=== PATIENT | female | born 1990 | race Caucasian/White ===

== ENCOUNTER 2016-12-07 15:37 | Emergency (ER) | payer SELFPAY ==
--- NOTE | 2016-12-07 16:37 | ER Document Report ---
ED Medical Screen (RME) - General Stated Complaint: STOMACH PAIN Notes: 25 yo female c/o lower abdominal pain x 2 days, intermittant pain. denies any dysuria or urinary symptoms. no vaginal symptoms. noted blood with bowel movement, dark brown/red. denies constipation or hemorrhoids. no previous rectal bleeding. no n/v. abd is soft. mild LLQ tenderness. no guarding TRAVEL OUTSIDE OF THE [place] IN LAST 30 DAYS: No - Related Data Allergies/Adverse Reactions: No Known Allergies Allergy (Verified 12/07/16 16:33) Past Medical History - Social History Family history: Reviewed & Not Pertinent Endocrine Medical History: Reports: Hx Hypothyroidism Renal/ Medical History: Denies: Hx Ovarian Cysts Psychiatric Medical History: Reports: Hx Anxiety - Immunizations Hx Diphtheria, Pertussis, Tetanus Vaccination: Yes Physical Exam - Vital signs Vitals: Temp Pulse Resp BP Pulse Ox 98.5 F 115 H 16 127/74 H 100 12/07/16 16:28 12/07/16 16:28 12/07/16 16:28 12/07/16 16:28 12/07/16 16:28 Course - Vital Signs Vital signs: Temp Pulse Resp BP Pulse Ox 98.5 F 115 H 16 127/74 H 100 12/07/16 16:28 12/07/16 16:28 12/07/16 16:28 12/07/16 16:28 12/07/16 16:28
[2016-12-07 17:40] LABS: ABSOLUTE LYMPHOCYTES (AUTO) 1.9 10^3/uL (0.5-4.7); ABSOLUTE MONOCYTES (AUTO) 0.7 10^3/uL (0.1-1.4); ABSOLUTE NEUT (AUTO) 6.8 10^3/uL (1.7-8.2); BASOPHILS % (AUTO) 0.2 % (0-2); EOSINOPHILS % (AUTO) 0.2 % (0-6); HEMATOCRIT 41.3 % (36.0-47.0); HEMOGLOBIN 13.9 g/dL (12.0-15.5); HGB HCT DIFFERENCE 0.4; LYMPHOCYTES % (AUTO) 20.2 % (13-45); MEAN CORPUSCULAR HEMOGLOBIN 28.6 pg (27.0-33.4); MEAN CORPUSCULAR HGB CONC 33.7 g/dL (32.0-36.0); MEAN CORPUSCULAR VOLUME 85 fl (80-97); RED BLOOD COUNT 4.87 10^6/uL (3.72-5.28); RED CELL DISTRIBUTION WIDTH 13.4 % (11.5-14.0); SEGMENTED NEUTROPHILS % (AUTO) 72.4 % (42-78); WHITE BLOOD COUNT 9.4 10^3/uL (4.0-10.5)
[2016-12-07 17:55] LABS: ALANINE AMINOTRANSFERASE 25 U/L (9-52); ALBUMIN 4.4 g/dL (3.5-5.0); ALKALINE PHOSPHATASE 79 U/L (38-126); ANION GAP 15 (5-19); APPEARANCE,URINE CLEAR; ASPARTATE AMINO TRANSFERASE 19 U/L (14-36); BILIRUBIN,TOTAL 0.4 mg/dL (0.2-1.3); BILIRUBIN,URINE NEGATIVE (NEGATIVE); BLOOD UREA NITROGEN 12 mg/dL (7-20); CALCIUM 10.3 mg/dL (8.4-10.2); CARBON DIOXIDE 23 mmol/L (22-30); CHLORIDE 102 mmol/L (98-107); CREATININE RESULT 0.52 mg/dL (0.52-1.25); GLUCOSE 114 mg/dL (75-110); GLUCOSE, URINE NEGATIVE (NEGATIVE); KETONES,URINE NEGATIVE (NEGATIVE); LEUKOCYTE ESTERASE,URINE SMALL (NEGATIVE); NITRITE,URINE NEGATIVE (NEGATIVE); POTASSIUM 4.1 mmol/L (3.6-5.0); PROTEIN,URINE NEGATIVE (NEGATIVE); SODIUM 140.2 mmol/L (137-145); TOTAL PROTEIN 8.1 g/dL (6.3-8.2); URINE SPECIFIC GRAVITY 1.016; UROBILINOGEN,URINE NEGATIVE mg/dL (<2.0)
--- NOTE | 2016-12-07 18:29 | ER Document Report ---
ED General - General Chief Complaint: Abdominal Pain Stated Complaint: STOMACH PAIN Mode of Arrival: Ambulatory Information source: Patient Notes: Patient presents to the emergency department with complaints of abdominal pain 2 days. She denies fever vomiting but reports diarrhea twice today. She reports last time she had diarrhea she noted blood in it. She denies history of rectal bleed. She denies family history of colon cancers. She denies rectal intercourse. TRAVEL OUTSIDE OF THE [place] IN LAST 30 DAYS: No - HPI Onset: This afternoon Onset/Duration: Sudden Severity: None Associated symptoms: None Exacerbated by: Denies Relieved by: Denies Similar symptoms previously: No Recently seen / treated by doctor: No - Related Data Allergies/Adverse Reactions: No Known Allergies Allergy (Verified 12/07/16 16:33) Past Medical History - General Information source: Patient Last Menstrual Period: 11/10/2016 - Social History Smoking Status: Never Smoker Cigarette use (# per day): No Chew tobacco use (# tins/day): No Frequency of alcohol use: None Drug Abuse: None Occupation: student Family History: None - Denies Patient has suicidal ideation: No Patient has homicidal ideation: No Endocrine Medical History: Reports: Hx Hypothyroidism Renal/ Medical History: Denies: Hx Ovarian Cysts, Hx Peritoneal Dialysis Psychiatric Medical History: Reports: Hx Anxiety - Immunizations Hx Diphtheria, Pertussis, Tetanus Vaccination: Yes Review of Systems - Review of Systems Notes: Review HPI for review of systems., All other systems negative Physical Exam - Vital signs Vitals: Temp Pulse Resp BP Pulse Ox 98.5 F 115 H 16 127/74 H 100 12/07/16 16:28 12/07/16 16:28 12/07/16 16:28 12/07/16 16:28 12/07/16 16:28 - Notes Notes: PHYSICAL EXAMINATION: GENERAL: Well-appearing and in no acute distress nontoxic looking HEAD: Atraumatic, normocephalic. EYES: Pupils equal round and reactive to light, extraocular movements intact, sclera anicteric, conjunctiva are normal. ENT: nares patent, oropharynx clear without exudates. Moist mucous membranes. NECK: Normal range of motion, supple without lymphadenopathy LUNGS: CTAB and equal. No wheezes rales or rhonchi. HEART: Regular rate and rhythm without murmurs ABDOMEN: Soft, no tenderness. No guarding, no rebound BACK: Denies pain EXTREMITIES: Normal range of motion, no pitting edema. No cyanosis. NEUROLOGICAL: Cranial nerves grossly intact. Normal sensory/motor exams. PSYCH: Normal mood, normal affect. SKIN: Warm, Dry, normal turgor, no rashes or lesions noted - Rectal Tenderness: No Stool: Heme negative Course - Re-evaluation Re-evalutation: 12/07/16 Patient instructed on all labs. Patient instructed on negative occult stool. Patient was instructed on importance of follow-up with the GI provider for further evaluation she verbalized understanding. I have consulted the attending provider per [facility] guidelines - Vital Signs Vital signs: Temp Pulse Resp BP Pulse Ox 98.7 F 98 16 107/67 100 12/07/16 19:50 12/07/16 19:50 12/07/16 19:50 12/07/16 19:50 12/07/16 19:50 - Laboratory Result Diagrams: 12/07/16 17:15 12/07/16 17:15 Laboratory results interpreted by me: 12/07/16 12/07/16 17:15 17:15 Glucose 114 H Calcium 10.3 H Urine Blood SMALL H Ur Leukocyte Esterase SMALL H Discharge - Discharge Clinical Impression: Rectal bleed Abdominal pain Qualifiers: Abdominal location: lower abdomen, unspecified Qualified Code(s): R10.30 - Lower abdominal pain, unspecified Condition: Stable Disposition: HOME, SELF-CARE Instructions: Abdominal Pain ([facility]), Rectal Bleeding, Unclear Cause ([facility]), Gastroenterology Additional Instructions: *You have been evaluated for abdominal pain rectal bleed *Monitor your stools *Follow up with a emu farmer for evaluation and colonoscopy as indicated *Live up with primary care within the next week *Return to ED for worsening condition, changes, needs *Return to ED if not better in 24 hours Forms: Return to School Referrals: PETEY CHU [Primary Care Provider] - Follow up in 3-5 days
[2016-12-07 19:54] VITALS: BP 107/67
== END 2016-12-07 19:54 | disposition home or self-care (01) ==
LOC: ER 15:37
DX: R10.30 Lower abdominal pain, unspecified (principal); K62.5 Hemorrhage of anus and rectum; R19.7 Diarrhea, unspecified
CPT/HCPCS: 36415; 80053; 81001; 82272; 84703; 85025; 99283

== ENCOUNTER 2018-05-01 11:16 | Outpatient (CLI) | payer BC ==
--- NOTE | 2018-05-01 12:38 | Non Stress Test Report ---
Non Stress Test Datetime Report Generated by CPN: 05/01/2018 12:38 DEMOGRAPHIC EGA NST: 34.2 INDICATION Indication for Study: Ordered by Provider Indication for Study (NST) Other: repeat from office Polyhydramnios MONITORING Monitor Explained: Monitor Explained; Test Explained; Patient Verbalized Understanding Monitor Explained Other: see flowsheet for vital signs Time on Monitor: 05/01/2018 11:30 Time off Monitor: 05/01/2018 12:33 NST Duration: 63 NST INTERVENTIONS NST Interventions: PO Hydration; Reposition Patient Physician Notified NST: Dr. Naqvi BABY A: [id number] BABY A Movement : Present Contraction Frequency : rare FHR Baseline : 155 Accelerations : 15X15 Decelerations : None Variability : Moderate 6-25bpm NST Review: Meets Criteria for Reactive NST NST Review and Verified By : ELODIA Goins Results: Reactive NST REPORT Report Trigger: Send Report
== END 2018-05-01 12:36 | disposition home or self-care (01) ==
LOC: LC 11:16
PROVIDERS: ATTEND Obstetrics & Gynecology
PROC: 4A1HXCZ Monitoring of Products of Conception, Cardiac Rate, External Approach (ICD-10-PCS; principal; 2018-05-01)
DX: O40.3XX0 Polyhydramnios, third trimester, not applicable or unspecified (principal); Z3A.34 34 weeks gestation of pregnancy
CPT/HCPCS: 59025

== ENCOUNTER 2018-05-04 09:50 | Outpatient (CLI) | payer BC ==
--- NOTE | 2018-05-04 10:42 | Non Stress Test Report ---
Non Stress Test Datetime Report Generated by CPN: 05/04/2018 10:41 DEMOGRAPHIC EGA NST: 34.5 INDICATION Indication for Study: Ordered by Provider MONITORING Monitor Explained: Monitor Explained; Test Explained; Patient Verbalized Understanding Time on Monitor: 05/04/2018 10:12 Time off Monitor: 05/04/2018 10:36 NST Duration: 24 NST INTERVENTIONS NST Interventions: PO Hydration Physician Notified NST: Dr Callejas BABY A: [id number] BABY A Movement : Present Contraction Frequency : irregular FHR Baseline : 155 Accelerations : 15X15 Decelerations : None Variability : Moderate 6-25bpm NST Review: Meets Criteria for Reactive NST NST Review and Verified By : Alyse Camp RNC NST Results: Reactive NST REPORT Report Trigger: Send Report
== END 2018-05-04 10:46 | disposition home or self-care (01) ==
LOC: LC 09:50
PROVIDERS: ATTEND Student in an Organized Health Care Education/Training Program
PROC: 4A1HXCZ Monitoring of Products of Conception, Cardiac Rate, External Approach (ICD-10-PCS; principal; 2018-05-04)
DX: O47.03 False labor before 37 completed weeks of gestation, third trimester (principal); Z3A.34 34 weeks gestation of pregnancy
CPT/HCPCS: 59025; 94760

== ENCOUNTER 2018-05-28 02:47 | Inpatient (IN) | payer BC, MEDICAID ==
[2018-05-28 03:17] LABS: APPEARANCE,URINE CLOUDY; BILIRUBIN,URINE NEGATIVE (NEGATIVE); COLOR,URINE YELLOW; GLUCOSE, URINE NEGATIVE (NEGATIVE); KETONES,URINE NEGATIVE (NEGATIVE); LEUKOCYTE ESTERASE,URINE MODERATE (NEGATIVE); NITRITE,URINE NEGATIVE (NEGATIVE); PROTEIN,URINE NEGATIVE (NEGATIVE); URINE SPECIFIC GRAVITY 1.015; UROBILINOGEN,URINE NEGATIVE mg/dL (<2.0)
[2018-05-28 03:35] LABS: URINE AMPHETAMINES SCREEN NEGATIVE; URINE BARBITURATES SCREEN NEGATIVE; URINE BENZODIAZEPINES SCREEN NEGATIVE; URINE COCAINE SCREEN NEGATIVE; URINE MARIJUANA (THC) SCREEN NEGATIVE; URINE METHADONE SCREEN NEGATIVE; URINE PHENCYCLIDINE SCREEN NEGATIVE
[2018-05-28] MEDS: RINGERS SOLUTION,LACTATED 1,000 ML IV PRN ×3 (03:40→12:01)
[2018-05-28 03:46] LABS: ABSOLUTE BASOPHILS # (AUTO) 0.1 10^3/uL (0.0-0.2); ABSOLUTE EOSINOPHILS # (AUTO) 0.2 10^3/uL (0.0-0.6); ABSOLUTE LYMPHOCYTES (AUTO) 2.8 10^3/uL (0.5-4.7); ABSOLUTE MONOCYTES (AUTO) 1.1 10^3/uL (0.1-1.4); ABSOLUTE NEUT (AUTO) 7.1 10^3/uL (1.7-8.2); BASOPHILS % (AUTO) 0.5 % (0-2); EOSINOPHILS % (AUTO) 1.7 % (0-6); HEMATOCRIT 32.7 % (36.0-47.0); HEMOGLOBIN 10.9 g/dL (12.0-15.5); LYMPHOCYTES % (AUTO) 25.3 % (13-45); MEAN CORPUSCULAR HEMOGLOBIN 26.5 pg (27.0-33.4); MEAN CORPUSCULAR HGB CONC 33.4 g/dL (32.0-36.0); MEAN CORPUSCULAR VOLUME 79 fl (80-97); MONOCYTES % (AUTO) 9.6 % (3-13); RED BLOOD COUNT 4.13 10^6/uL (3.72-5.28); RED CELL DISTRIBUTION WIDTH 15.7 % (11.5-14.0); SEGMENTED NEUTROPHILS % (AUTO) 62.9 % (42-78); TOTAL CELLS COUNTED % (AUTO) 100 %; WHITE BLOOD COUNT 11.2 10^3/uL (4.0-10.5)
[2018-05-28] MEDS ORDERED: MISOPROSTOL 0.2 MG TABLET ONE (03:54)
[2018-05-28] MEDS ORDERED: OXYTOCIN/NORMAL SALINE 20 UNIT/1,000 ML RTUINJ ONE (03:54)
[2018-05-28] MEDS ORDERED: LIDOCAINE 1% INJ-PF (10 MG/ML) 30 ML SDV ONE (03:54)
[2018-05-28 04:14] LABS: PLATELET COUNT 266 10^3/uL (150-450)
[2018-05-28] MEDS ORDERED: OXYTOCIN/NORMAL SALINE 20 UNIT/1,000 ML RTUINJ IV PRN ×2 (06:52→10:33)
[2018-05-28] MEDS ORDERED: EPHEDRINE SULFATE INJ 50 MG/1 ML AMPULE ONE (07:08)
[2018-05-28] MEDS ORDERED: FENTANYL/BUPIVACAINE/NS/PF 300 MCG/150 ML RTUINJ EPI ONE (07:09)
[2018-05-28] MEDS ORDERED: BUPIVACAINE HCL 0.25 % INJ/PF (2.5 MG/1 ML) 30 ML VIAL ONE (07:09)
--- NOTE | 2018-05-28 07:21 | Admission Physical ---
Datetime Report Generated by CPN: 05/28/2018 07:21 CURRENT ADMISSION Chief Complaint: Uterine Contractions; Suspected Ruptured Membranes Indication for Induction: Not Applicable Admit Impression : Term, Intrauterine ; Active Labor; Ruptured Membranes Admit Plan: Admit to Unit; Initiate Labor Protocol ALLERGIES Medication Allergies: No Medication Allergies: No Known Allergies (12/07/2016) OBSTETRICAL HISTORY EDC: 06/10/2018 00:00 : 3 Para: 2 Term: 2 : 0 SAB: 0 IAB: 0 Livin Cesareans: 0 VBACs: 0 Multiple Births: 0 Gestational Diabetes: No Rh Sensitization: No Incompetent Cervix: No JOSE: No Infertility: No ART Treatment: No Uterine Anomaly: No IUGR: No Hx Previous C/S: No Macrosomia: No Hx Loss/Stillborn: No PIH: No Hx : No Placenta Previa/Abruption: No Depression/PP Depression: No PTL/PROM: No Post Hemorrhage: No Current Procedures: Ultrasound; NST Obstetrical History Comments: 06/2013 male 39.6 wks 8lb 0 oz 02/2015 male 39.6 wks 8lb 6 oz SEE RECORDS Alcohol: No Marijuana : No Cocaine: No Other Illicit Drugs: No Cigarettes: Never Smoker. 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 Surgery: No Heart Disease: No Hosp/Surgery: No Autoimmune Disorder: No Anesthetic Complications: No Kidney Disease: No Abnormal Pap Smear: No Neuro/Epilepsy: No Psychiatric Disorders: No Other Medical Diseases: No Hepatitis/Liver Disease: No Significant Family History: No Varicosities/Phlebitis: No Trauma/Violence : No Thyroid Dysfunction: No Medical History Comments: anxiety 2 years ago PHYSICAL EXAM General: Normal HEENT: Normal Neurologic: Normal Thyroid: Normal Heart: Normal Lungs: Normal Breast: Deferred Back: Normal Abdomen: Normal Genitourinary Exam: Normal Extremities: Normal DTRs: Normal Pelvic Type: Adequate Vital Signs: Reviewed VAGINAL EXAM Dilatation: 4 Effacement: 75 Station: -2 MEMBRANES Pooling: Negative Membranes: Ruptured FETUS A EGA: 38.1 Monitoring: External US FHR- Baseline: 140 Variability: Moderate 6-25bpm Accelerations: 15X15 Decelerations: None FHR Category: Category I Presentation: Vertex Admit Comment: efw 8-9 lbs PLANS FOR LABOR AND DELIVERY Pain Management: Epidural Feeding Preference: Breast INFORMED CONSENT Signature: with User ID: [email or web address]
[2018-05-28] MEDS ORDERED: FENTANYL CITRATE INJ/PF 100 MCG/2 ML AMPUL ONE (07:30)
[2018-05-28] MEDS ORDERED: PROMETHAZINE HCL 25 MG SUPP.RECT PR PRN (10:33)
[2018-05-28] MEDS ORDERED: PROMETHAZINE HCL 25 MG TABLET PO PRN (10:33)
[2018-05-28] MEDS ORDERED: ACETAMINOPHEN WITH CODEINE #3 TABLET PO PRN ×2 (10:33)
[2018-05-28] MEDS ORDERED: PSEUDOEPHEDRINE HCL 30 MG TABLET PO PRN (10:33)
[2018-05-28] MEDS ORDERED: PROMETHAZINE HCL INJ 25 MG/1 ML VIAL IV PRN (10:33)
[2018-05-28] MEDS ORDERED: DIPHENHYDRAMINE HCL 25 MG CAPSULE PO PRN (10:33)
[2018-05-28] MEDS ORDERED: ZOLPIDEM TARTRATE 5 MG TABLET PO PRN (10:33)
[2018-05-28] MEDS ORDERED: MEASLES,MUMPS&RUBELLA VACC/PF 0.5 ML VIAL SUBCUT PRN (10:33)
[2018-05-28] MEDS ORDERED: MAGNESIUM HYDROXIDE SUSP 30 ML UDCUP PO PRN (10:33)
[2018-05-28] MEDS ORDERED: GLYCERIN/WITCH HAZEL LEAF 1 EACH MED..PAD TP PRN (10:33)
[2018-05-28] MEDS ORDERED: BENZOCAINE/MENTHOL AEROSOL SPRAY 56 ML TOP PRN (10:33)
[2018-05-28] MEDS ORDERED: DIBUCAINE 1% OINTMENT 28 GM TP PRN (10:33)
[2018-05-28] MEDS ORDERED: DIPH/PERTUSS(ACELL)/TETANUS VAC/PF 0.5 ML SYR (>=10YO) IM PRN (10:33)
[2018-05-28] MEDS ORDERED: NA PHOS,M-B/NA PHOS,DI-BA (ADULT) 133 ML ENEMA PR PRN (10:33)
[2018-05-28] MEDS ORDERED: ACETAMINOPHEN 325 MG TABLET PO PRN (10:33)
[2018-05-28] MEDS ORDERED: IBUPROFEN 800 MG TABLET ONE (11:57)
--- NOTE | 2018-05-28 12:26 | Delivery Summary ---
Del Sum A-C Datetime Report Generated by CPN: 05/28/2018 12:25 DELIVERY PERSONNEL DELIVERY PERSONNEL: [id number] Delivery Doctor:: Richelle Crow CNM Nurse Coal Chemist Certified:: Richelle Crow CNM Labor and Delivery Nurse:: Kristy Green RNbush regenerator Nurse:: LAVERN Ruiz Director Prospect/SHEET METAL SHOP HELPER: Opal Anderson CNA II Additional Personnel: : Leslie Rodríguez RN MATERNAL INFORMATION Delivery Anesthesia: Epidural Medications After Delivery: Pitocin Bolus-Please Comment Meds After Delivery Comment: pitocin bolusing per order Maternal Complications: None Provider Comments: Pt. with strong urge to push and found to be c/c/+2. started pushing and went on to deliver a viable baby boy with strong respiratory effort and cry with tactile stimulation. Baby placed on maternal abdomen skin to skin. Cord allowed to stop pulsating then clamped x2 and cut by FOB (3vc noted, cord blood obtained). Placenta delivered spontaneously intact (central insertion), fundus firm @ u-4, minimal bleeding, laceration as stated. Baby and mom remain skin to skin and bonding at this time. LABOR SUMMARY EDC: 06/10/2018 00:00 No. Babies in Womb: 1 Attempted: No Labor Anesthesia: Epidural LABOR INFORMATION Reason for Induction: Not Applicable Onset of Labor: 05/28/2018 01:45 Complete Dilatation: 05/28/2018 10:28 Oxytocin: Augmentation Group B Beta Strep: negative Antibiotics # of Doses: 0 Steroids Given: None Reason Steroids Not Administered: Not Applicable MEMBRANES Membranes Rupture Method: Spontaneous Rupture of Membranes: 05/28/2018 01:45 Length of Rupture (hr): 9.02 Amniotic Fluid Color: Clear Amniotic Fluid Amount: Large Amniotic Fluid Odor: Normal STAGES OF LABOR Stage 1 hr: 8 Stage 1 min: 43 Stage 2 hr: 0 Stage 2 min: 18 Stage 3 hr: 0 Stage 3 min: 6 Total Time in Labor hr: 9 Total Time in Labor min: 7 VAGINAL DELIVERY Episiotomy: None Laceration #1: Perineal Laceration Extension #1: First Degree Laceration Repair: Not Applicable Laceration Repair Note: hemostatic no repair needed Sponge Count Correct: Yes Sharps Count Correct: N/A CSECTION DELIVERY Primary Indication: N/A Secondary Indication: N/A CSection Incidence: N/A Labor: N/A Elective: N/A CSection Incision: N/A BABY A INFORMATION Infant Delivery Date/Time: 05/28/2018 10:46 Method of Delivery: Vaginal Born in Route : No : N/A Forceps: N/A Vacuum Extraction: N/A Shoulder Dystocia : No PRESENTATION/POSITION BABY A Presentation: Cephalic Cephalic Presentation: Vertex Breech Presentation: N/A PLACENTA INFORMATION BABY A Placenta Delivery Time : 05/28/2018 10:52 Placenta Method of Delivery: Spontaneous Placenta Status: Delivered SCORES BABY A Heart Rate 1 min: >100 bpm Resp Effort 1 min: Good Cry Reflex Irritability 1 min: Cough or Sneeze or Pulls Away Muscle Tone 1 min: Active Motion Color 1 min: Body [place], Extremities Blue Resuscitation Effort 1 min: Tactile Stimulation SCORE 1 MIN: 9 Heart Rate 5 min: >100 bpm Resp Effort 5 min: [place] Reflex Irritability 5 min: Cough or Sneeze or Pulls Away Muscle Tone 5 min: Active Motion Color 5 min: Body [place], Extremities Blue Resuscitation Effort 5 min: N/A SCORE 5 MIN: 9 Resuscitation Effort 10 min: N/A INFANT INFORMATION BABY A Gestational Age at Delivery: 38.1 Gestational Status: Early Term- 37- 38.6 Weeks Outcome : Liveborn Condition : Stable Sex: Male IDENTIFICATION BABY A Infant Verification Date/Time: 05/28/2018 11:26 ID Band Number: [id number] Mother's Name Verified: Yes RN Verifying Infant: CMerlyn Green, RN Mini Egan, RN WEIGHT/LENGTH BABY A Birthweight (gm): 3530 Weight (lb): 7 Weight (oz): 13 Length (in): 19.50 Infant Length (cm): 49.53 CORD INFORMATION BABY A No. Cord Vessels: 3 Nuchal Cord : N/A Cord Blood Taken: Yes-For Eval (Mom's Blood Type - or O+) Infant Suction: None ASSESSMENT BABY A Complications: Extended Tachycardia Physical Findings at Delivery: Within Normal Limits Respirations: Appears Normal Skin to Skin: Yes Skin to Skin Time (min): 60 Fuse Assembler/ALS Called : No Care By: C [place] RN Transferred To: Remains with Mother BABY B INFORMATION : N/A SIGNATURES Assignment: Dinah Callejas MD Signature: with User ID: [email or web address] : with User ID: [email or web address]
--- NOTE | 2018-05-28 12:26 | Warning Signs in Babies ---
VOD Warning Signs Datetime Report Generated by [facility]: 05/28/2018 12:25 VOD#[id number] -Warning Signs in Babies: Viewed with Parent(s)/Family (05/01/2018 11:38:Kristy Green RN)
[2018-05-28] MEDS: IBUPROFEN 800 MG TABLET PO SCH ×2 (13:40→21:50)
[2018-05-28] MEDS: DOCUSATE SODIUM 100 MG CAPSULE PO SCH (17:39)
[2018-05-28] MEDS: FERROUS SULFATE 325 MG TABLET PO SCH (17:39)
[2018-05-28] MEDS: LEVOTHYROXINE SODIUM 0.1 MG TABLET PO SCH (21:49)
[2018-05-28] MEDS: FAMOTIDINE 20 MG TABLET PO SCH (21:49)
[2018-05-28] MEDS: LEVOTHYROXINE SODIUM 0.075 MG TABLET PO SCH (21:49)
[2018-05-28] MEDS ORDERED: (PENDING PHARMACY ID) (Levothyroxine Sodium [Synthroid] 175 MCG) PO SCH (22:00)
[2018-05-29] MEDS: IBUPROFEN 800 MG TABLET PO SCH ×3 (06:59→22:01)
[2018-05-29 07:19] LABS: HEMATOCRIT 30.7 % (36.0-47.0); HEMOGLOBIN 10.2 g/dL (12.0-15.5); MEAN CORPUSCULAR HEMOGLOBIN 26.9 pg (27.0-33.4); MEAN CORPUSCULAR HGB CONC 33.4 g/dL (32.0-36.0); MEAN CORPUSCULAR VOLUME 81 fl (80-97); PLATELET COUNT 219 10^3/uL (150-450); RED BLOOD COUNT 3.81 10^6/uL (3.72-5.28); WHITE BLOOD COUNT 10.4 10^3/uL (4.0-10.5)
[2018-05-29] MEDS: FERROUS SULFATE 325 MG TABLET PO SCH ×2 (09:32→17:33)
[2018-05-29] MEDS: DOCUSATE SODIUM 100 MG CAPSULE PO SCH ×2 (09:32→17:33)
[2018-05-29] MEDS: SENNOSIDES/DOCUSATE 8.6-50 MG 1 EACH TABLET PO SCH (09:32)
[2018-05-29] MEDS: FAMOTIDINE 20 MG TABLET PO SCH ×2 (09:32→22:06)
[2018-05-29] MEDS: PRENATAL VITAMIN W DHA CAPSULE PO SCH (09:32)
--- NOTE | 2018-05-29 09:34 | PDOC PROGRESS REPORT ---
Subjective-OB Progress Note for:: 05/29/18 Subjective: Doing well, no c/o, family at BS, voiding, eating well Physical Exam (OB) Vital Signs: Temp Pulse Resp BP Pulse Ox 98.0 F 92 18 117/67 98 05/29/18 07:41 05/29/18 07:41 05/29/18 07:41 05/29/18 07:41 05/29/18 07:41 Intake & Output 05/28/18 05/29/18 05/30/18 06:59 06:59 06:59 Intake Total 3844 Balance 3844 Weight 82.6 kg - PIH/Pre-Eclampsia Clonus: Negative Headache: Absent Epigastric Pain: No Visual Changes: No - Lochia Lochia Amount: Scant < 10 ml Lochia Color: Rubra/Red - Abdomen Description: Tender, Soft, Flat Hernia Present: No Fundal Description: Firm, Midline Fundal Height: u/u - u/2 Objective-Diagnostic Laboratory: 05/29/18 06:54 05/29/18 06:54 WBC 10.4 RBC 3.81 Hgb 10.2 L Hct 30.7 L MCV 81 MCH 26.9 L MCHC 33.4 RDW 16.0 H Plt Count 219 Assessment and Plan(PN) - Assessment and Plan (1) Vaginal delivery Is this a current diagnosis for this admission?: Yes (2) Rupture of membranes with clear amniotic fluid Is this a current diagnosis for this admission?: Yes - Time Spent with Patient Time with patient: Less than 15 minutes Medications reviewed and adjusted accordingly: Yes - Disposition Anticipated Discharge: Home Within: within 24 hours
[2018-05-29] MEDS: LEVOTHYROXINE SODIUM 0.1 MG TABLET PO SCH (22:01)
[2018-05-29] MEDS: LEVOTHYROXINE SODIUM 0.075 MG TABLET PO SCH (22:01)
[2018-05-30] MEDS: IBUPROFEN 800 MG TABLET PO SCH (05:57)
--- NOTE | 2018-05-30 08:59 | PDOC PROGRESS REPORT ---
Subjective-OB Progress Note for:: 05/30/18 Subjective: Doing well, no c/o, , voiding, ambulating Physical Exam (OB) Vital Signs: Temp Pulse Resp BP Pulse Ox 98.1 F 109 H 18 129/82 H 99 05/30/18 08:12 05/30/18 08:12 05/30/18 08:12 05/30/18 08:12 05/30/18 08:12 Intake & Output 05/29/18 05/30/18 05/31/18 06:59 06:59 06:59 Intake Total 3844 900 Balance 3844 900 - PIH/Pre-Eclampsia Clonus: Negative Headache: Absent Epigastric Pain: No Visual Changes: No - Lochia Lochia Amount: Scant < 10 ml Lochia Color: Rubra/Red - Abdomen Description: Soft, Round Hernia Present: No Fundal Description: Firm, Midline Fundal Height: u/u - u/2 Objective-Diagnostic Laboratory: 05/29/18 06:54 Assessment and Plan(PN) - Assessment and Plan (1) Vaginal delivery Is this a current diagnosis for this admission?: Yes (2) Rupture of membranes with clear amniotic fluid Is this a current diagnosis for this admission?: Yes - Time Spent with Patient Time with patient: Less than 15 minutes Medications reviewed and adjusted accordingly: Yes - Disposition Anticipated Discharge: Home Within: Other - home today
--- NOTE | 2018-05-30 09:03 | PDOC DISCHARGE SUMMARY ---
Final Diagnosis Discharge Date: 05/30/18 - Final Diagnosis (1) Vaginal delivery Is this a current diagnosis for this admission?: Yes (2) Rupture of membranes with clear amniotic fluid Is this a current diagnosis for this admission?: Yes Discharge Data - Discharge Medication Home Medications: 57/Iron/Folic/Dss/Dha [Extra-Virt Plus Dha Softgel] 1 each PO DAILY 04/13 Levothyroxine Sodium [Synthroid] 175 mcg PO QHS 05/04/18 Gestational Age: 38.1 Reason(s) for Admission: PROM Admission Note: augmentation Procedures: NST, Ultrasound Intrapartum Procedure(s): Spontaneous Vaginal Delivery Complication(s): Laceration-Perineal Laceration-Degree: 1st - Data Baby 1 Male at 1 minute: 9 at 5 minutes: 9 Weight: 3.544 kg Home with Mother: Yes Complications: No - Diagnosis Test Laboratory: Temp Pulse Resp BP Pulse Ox 98.1 F 109 H 18 129/82 H 99 05/30/18 08:12 05/30/18 08:12 05/30/18 08:12 05/30/18 08:12 05/30/18 08:12 05/28/18 05/28/18 05/29/18 02:58 03:23 06:54 RBC 4.13 3.81 Hgb 10.9 L 10.2 L Hct 32.7 L 30.7 L Urine Opiates Screen NEGATIVE - Discharge information/Instructions Discharge Activity: Activity As Tolerated, Balance Activity w/Rest, No Lifting Over 10 Pounds, No Lifting/Push/Pulling, Pelvic Rest Discharge Diet: As Tolerated, Regular Disposition: HOME, SELF-CARE Follow up with: [facility] in: 4, Weeks
[2018-05-30] MEDS: FERROUS SULFATE 325 MG TABLET PO SCH (09:07)
[2018-05-30] MEDS: DOCUSATE SODIUM 100 MG CAPSULE PO SCH (09:07)
[2018-05-30] MEDS: SENNOSIDES/DOCUSATE 8.6-50 MG 1 EACH TABLET PO SCH (09:08)
[2018-05-30] MEDS: FAMOTIDINE 20 MG TABLET PO SCH (09:08)
[2018-05-30] MEDS: PRENATAL VITAMIN W DHA CAPSULE PO SCH (09:08)
[2018-05-30 11:45] VITALS: BP 129/82
== END 2018-05-30 13:15 | disposition home or self-care (01) | DRG 775 ==
LOC: LC 02:47 → LR 03:06 → 2S 12:54
PROVIDERS: ADMIT Obstetrics & Gynecology; ATTEND Obstetrics & Gynecology
PROC: 10E0XZZ Delivery of Products of Conception, External Approach (ICD-10-PCS; principal; 2018-05-28)
PROC: 4A1HXCZ Monitoring of Products of Conception, Cardiac Rate, External Approach (ICD-10-PCS; 2018-05-28)
DX: O42.02 Full-term premature rupture of membranes, onset of labor within 24 hours of rupture (principal); O76 Abnormality in fetal heart rate and rhythm complicating labor and delivery; O70.0 First degree perineal laceration during delivery; Z37.0 Single live birth; Z3A.38 38 weeks gestation of pregnancy
CPT/HCPCS: 36415; 80307; 81005; 85025; 85027; 86592; 86850; 86900; 86901; 94760; J2590; J3010; J3490

== ENCOUNTER 2018-12-17 11:08 | Emergency (ER) | payer SELFPAY ==
[2018-12-17] MEDS ORDERED: ACETAMINOPHEN 325 MG TABLET PO ONE (12:34)
--- NOTE | 2018-12-17 12:34 | ER Document Report ---
ED Medical Screen (RME) - General Chief Complaint: Pelvic Pain Stated Complaint: PELVIC PAIN Time Seen by Provider: 12/17/18 12:20 Primary Care Provider: RACHNA ARORA MD [Primary Care Provider] - Follow up as needed Notes: Patient is a 28-year-old female that presents to the emergency department for chief complaint of pelvic pain. Pain started last night, and got worse this morning sharp pains bilaterally, sometimes worse in the right compared to the left, denies urinary complaints, currently breast-feeding. ROS: Other than noted above, the 12 point review of systems was reviewed with the patient and were negative, all pertinent findings are included in the HPI. PHYSICAL EXAMINATION: Vital signs reviewed. GENERAL: Well-appearing, well-nourished and in no acute distress. HEAD: Atraumatic, normocephalic. EYES: Pupils equal round extraocular movements intact, conjunctiva are normal. ENT: Nares patent NECK: Normal range of motion CV: Heart regular rate and rhythm LUNGS: No respiratory distress Musculoskeletal: Normal range of motion NEUROLOGICAL: Normal speech PSYCH: Normal mood, normal affect. MDM: Patient seen and examined for rapid initial assessment. Vital signs reviewed. A comprehensive ED assessment and evaluation of the patient, analysis of test results and completion of the medical decision making process will be conducted by additional ED providers. *Note is created using voice recognition software and may contain spelling, syntax or grammatical errors. TRAVEL OUTSIDE OF THE [place] IN LAST 30 DAYS: No - Related Data Allergies/Adverse Reactions: No Known Allergies Allergy (Verified 12/17/18 11:11) Past Medical History - Social History Chew tobacco use (# tins/day): No Frequency of alcohol use: None Drug Abuse: None Family history: Reviewed & Not Pertinent Endocrine Medical History: Reports: Hx Hypothyroidism Renal/ Medical History: Denies: Hx Ovarian Cysts, Hx Peritoneal Dialysis Psychiatric Medical History: Reports: Hx Anxiety - Immunizations Hx Diphtheria, Pertussis, Tetanus Vaccination: Yes Physical Exam - Vital signs Vitals: Temp Pulse Resp BP Pulse Ox 99.1 F 103 H 16 113/74 100 12/17/18 11:23 12/17/18 11:23 12/17/18 11:23 12/17/18 11:23 12/17/18 11:23 Course - Vital Signs Vital signs: Temp Pulse Resp BP Pulse Ox 99.1 F 103 H 16 113/74 100 12/17/18 11:23 12/17/18 11:23 12/17/18 11:23 12/17/18 11:23 12/17/18 11:23 Doctor's Discharge - Discharge Referrals: RACHNA ARORA MD [Primary Care Provider] - Follow up as needed
[2018-12-17 13:38] LABS: APPEARANCE,URINE SLIGHTLY-CLOUDY; BILIRUBIN,URINE NEGATIVE (NEGATIVE); COLOR,URINE YELLOW; GLUCOSE, URINE NEGATIVE (NEGATIVE); KETONES,URINE NEGATIVE (NEGATIVE); LEUKOCYTE ESTERASE,URINE NEGATIVE (NEGATIVE); NITRITE,URINE NEGATIVE (NEGATIVE); PROTEIN,URINE NEGATIVE (NEGATIVE); URINE SPECIFIC GRAVITY 1.013; UROBILINOGEN,URINE NEGATIVE mg/dL (<2.0)
--- NOTE | 2018-12-17 14:03 | RADIOLOGY REPORT (SQ) ---
EXAM DESCRIPTION: U/S NON OB PEL TV W/DOPPLER COMPLETED DATE/TIME: 12/17/2018 1:42 pm REASON FOR STUDY: pelvic pain currently breast feeding. Has not returned to normal cycle. COMPARISON: 10/13/2012 TECHNIQUE: Dynamic and static grayscale images acquired of the pelvis via transvaginal approach and recorded on PACS. Additional selected color Doppler and spectral images recorded. LIMITATIONS: None. FINDINGS: UTERUS: Contour normal. No mass. ENDOMETRIAL STRIPE: No focal or generalized thickening. No masses. CERVIX: A nabothian cyst is present. RIGHT OVARY AND DOPPLER: Normal size. No worrisome masses. Normal arterial vascular flow without evid ence for torsion. LEFT OVARY AND DOPPLER: Normal size. No worrisome masses. Normal arterial vascular flow without evide nce for torsion. FREE FLUID: None noted. OTHER: No other significant finding. MEASUREMENTS: UTERUS: 8.8 x 5.8 x 5 cm. ENDOMETRIAL STRIPE: 15 mm. RIGHT OVARY: 2.4 x 1.6 x 1.8 cm. LEFT OVARY: 2.2 x 1.8 x 1.9 cm. IMPRESSION: NORMAL TRANSVAGINAL PELVIC ULTRASOUND. TECHNICAL DOCUMENTATION: JOB ID: [id number] [employer]- All Rights Reserved Rev-03/16 Reading location - IP/workstation name: [email or web address]
[2018-12-17 15:22] LABS: BACTERIA (WET MOUNT) 4+ BACTERIA SEEN; EPITHELIALS (WET MOUNT) 3+ EPITHELIALS SEEN; T.VAGINALIS (WET MOUNT) NO TRICHOMONAS SEEN; WBCS (WET MOUNT) RARE WBCS SEEN; YEAST (WET MOUNT) NO YEAST SEEN
[2018-12-17 16:46] LABS: CHLAM PCR NOT DETECTED (NOT DETECT); GON PCR NOT DETECTED (NOT DETECT)
--- NOTE | 2018-12-17 18:31 | ER Document Report ---
ED General - General Chief Complaint: Pelvic Pain Stated Complaint: PELVIC PAIN Time Seen by Provider: 12/17/18 12:20 Primary Care Provider: RACHNA ARORA MD [ACTIVE STAFF] - Follow up as needed Mode of Arrival: Ambulatory Information source: Patient Notes: This is a 28-year-old female with a history of chlamydia in the past who presents to the emergency room with pelvic pain and vaginal discharge. Patient states she delivered a healthy boy 4 months ago and has not had her period yet. She is sexually active. She denies any fever, chills, nausea vomiting. TRAVEL OUTSIDE OF THE [place] IN LAST 30 DAYS: No - HPI Onset: Last week Onset/Duration: Gradual Quality of pain: Dull Severity: Mild Pain Level: 1 Associated symptoms: denies: Chest pain, Fever, Shortness of breath Exacerbated by: Denies Relieved by: Denies Similar symptoms previously: Yes Recently seen / treated by doctor: No - Related Data Allergies/Adverse Reactions: No Known Allergies Allergy (Verified 12/17/18 11:11) Past Medical History - General Information source: Patient - Social History Smoking Status: Former Smoker Cigarette use (# per day): No Chew tobacco use (# tins/day): No Frequency of alcohol use: None Drug Abuse: None Lives with: Family Family History: None - Denies Patient has suicidal ideation: No Patient has homicidal ideation: No - Past Medical History Cardiac Medical History: Reports: None Pulmonary Medical History: Reports: None Endocrine Medical History: Reports: Hx Hypothyroidism Renal/ Medical History: Denies: Hx Ovarian Cysts, Hx Peritoneal Dialysis Psychiatric Medical History: Reports: Hx Anxiety - Immunizations Hx Diphtheria, Pertussis, Tetanus Vaccination: Yes Review of Systems - Review of Systems Constitutional: denies: Chills, Fever EENT: No symptoms reported Cardiovascular: No symptoms reported Respiratory: No symptoms reported Gastrointestinal: See HPI Genitourinary: No symptoms reported Female Genitourinary: See HPI Musculoskeletal: No symptoms reported Skin: No symptoms reported Hematologic/Lymphatic: No symptoms reported Neurological/Psychological: No symptoms reported Physical Exam - Vital signs Vitals: Temp Pulse Resp BP Pulse Ox 99.1 F 103 H 16 113/74 100 12/17/18 11:23 12/17/18 11:23 12/17/18 11:23 12/17/18 11:23 12/17/18 11:23 Notes: Physical exam: GENERAL: She is alert and oriented x3, no acute distress HEAD: Atraumatic, normocephalic. EYES: Pupils equal round and reactive to light, extraocular movements intact, sclera anicteric, conjunctiva are normal. ENT: TMs normal, nares patent, oropharynx clear without exudates. Moist mucous membranes. NECK: Normal range of motion, supple without obvious mass or JVD. LUNGS: Breath sounds clear to auscultation bilaterally and equal. No wheezes rales or rhonchi. HEART: Regular rate and rhythm without murmurs, rubs or gallops. ABDOMEN: Soft, normoactive bowel sounds. No tenderness to palpation. No guarding, no rebound. No masses appreciated. Pelvic: External genitalia normal. Scant discharge in vault, mild left adnexal tenderness, no cervical motion tenderness, no adnexal masses. EXTREMITIES: Normal range of motion, no pitting or edema. No clubbing or cyanosis. NEUROLOGICAL: Cranial nerves II through XII grossly intact. Normal speech, moving all extremities. PSYCH: Normal mood, normal affect. SKIN: Warm, Dry, normal turgor, no rashes or lesions noted. Course - Vital Signs Vital signs: Temp Pulse Resp BP Pulse Ox 99.1 F 103 H 16 113/74 100 12/17/18 11:23 12/17/18 11:23 12/17/18 11:23 12/17/18 11:23 12/17/18 11:23 - Diagnostic Test Radiology reviewed: Reports reviewed - Ultrasound shows no acute pathology Discharge - Discharge Clinical Impression: Pelvic pain Condition: Stable Disposition: HOME, SELF-CARE Additional Instructions: As we discussed, the ultrasound showed normal ovaries and the uterus look good. Serologies showed no evidence of STD. I recommend taking it easy over the next few days, drink plenty of fluids, ibuprofen for pain. I do want you to follow-up with a primary care doctor: [address] [id number] Return to the emergency room for worsening pain, not tolerating fluids or any concerns or getting worse. Referrals: RACHNA ARORA MD [ACTIVE STAFF] - Follow up as needed
[2018-12-17 19:18] VITALS: BP 110/72
== END 2018-12-17 19:17 | disposition home or self-care (01) ==
LOC: ER 11:08
DX: R10.2 Pelvic and perineal pain (principal); N89.8 Other specified noninflammatory disorders of vagina; Z87.891 Personal history of nicotine dependence; Z87.42 Personal history of other diseases of the female genital tract
CPT/HCPCS: 76830; 81001; 81025; 87210; 87491; 87591; 93976; 99284

== ENCOUNTER → 2019-05-26 | Outpatient (CLI) | payer MEDICAID ==
[2019-05-26 15:03] LABS: APPEARANCE,URINE CLEAR; BILIRUBIN,URINE NEGATIVE (NEGATIVE); COLOR,URINE STRAW; GLUCOSE, URINE NEGATIVE (NEGATIVE); KETONES,URINE NEGATIVE (NEGATIVE); LEUKOCYTE ESTERASE,URINE MODERATE (NEGATIVE); NITRITE,URINE NEGATIVE (NEGATIVE); PROTEIN,URINE NEGATIVE (NEGATIVE); URINE SPECIFIC GRAVITY 1.006; UROBILINOGEN,URINE NEGATIVE mg/dL (<2.0)
== END ==
LOC: LAB 14:50
PROVIDERS: ATTEND Nurse Practitioner Family
DX: M54.5 Low back pain (principal)
CPT/HCPCS: 81001; 87086; 87088; 87186

== ENCOUNTER 2019-07-26 09:06 | Emergency (ER) | payer MEDICAID ==
--- NOTE | 2019-07-26 09:33 | ER Document Report ---
ED GI/ - General Chief Complaint: Pelvic Pain Stated Complaint: PELVIC PAIN Time Seen by Provider: 07/26/19 09:22 Primary Care Provider: NAIMA BILL NP [Primary Care Provider] - Follow up as needed Information source: Patient, Relative TRAVEL OUTSIDE OF THE [place] IN LAST 30 DAYS: No - HPI Patient complains to provider of: Pelvic pain, - Pt. is G4, P2 approx 6 weeks who developed L sided pelvic pain last night. Feels better this am but still with some pain. Denies vag. bleeding. - Related Data Allergies/Adverse Reactions: No Known Allergies Allergy (Verified 12/17/18 11:11) Past Medical History - General Information source: Patient, Relative Last Menstrual Period: 06/17 - Social History Smoking Status: Never Smoker Chew tobacco use (# tins/day): No Frequency of alcohol use: None Drug Abuse: None Family History: None - Denies Patient has suicidal ideation: No Patient has homicidal ideation: No Endocrine Medical History: Reports: Hx Hypothyroidism Renal/ Medical History: Denies: Hx Ovarian Cysts, Hx Peritoneal Dialysis Psychiatric Medical History: Reports: Hx Anxiety - Immunizations Hx Diphtheria, Pertussis, Tetanus Vaccination: Yes Review of Systems - Review of Systems Constitutional: No symptoms reported EENT: No symptoms reported Cardiovascular: No symptoms reported Respiratory: No symptoms reported Gastrointestinal: No symptoms reported Genitourinary: See HPI, Pain Female Genitourinary: See HPI, Neurological/Psychological: No symptoms reported -: Yes All other systems reviewed and negative Physical Exam - Vital signs Vitals: Temp Pulse Resp BP Pulse Ox 98.5 F 105 H 20 137/72 H 100 07/26/19 09:09 07/26/19 09:09 07/26/19 09:09 07/26/19 09:09 07/26/19 09:09 - General General appearance: Appears well In distress: None - HEENT Head: Normocephalic Pharynx: Normal Neck: Normal - Respiratory Respiratory status: No respiratory distress Breath sounds: Normal - Cardiovascular Rhythm: Regular Heart sounds: Normal auscultation Murmur: No - Abdominal Inspection: Normal Distension: No distension Bowel sounds: Normal Tenderness: Nontender Organomegaly: No organomegaly - Genitourinary External exam: Normal Speculum exam: Normal Vaginal bleeding: None Bimanuel exam: Normal. No: Cervical motion tender, Adnexal mass, Adnexal tenderness Course - Re-evaluation Re-evalutation: 07/26/19 11:11 pt. felt better at time of d/c -- expressed desire to go home. Will F/U with [facility] in 2-3 days for repeat beta quant. - Vital Signs Vital signs: Temp Pulse Resp BP Pulse Ox 98.5 F 105 H 20 137/72 H 100 07/26/19 09:09 07/26/19 09:09 07/26/19 09:09 07/26/19 09:09 07/26/19 09:09 - Laboratory Result Diagrams: 07/26/19 09:28 07/26/19 09:28 Laboratory results interpreted by me: 07/26/19 07/26/19 07/26/19 09:15 09:28 09:28 RDW 14.9 H Carbon Dioxide 21 L Beta HCG, Quant 30446.00 H Ur Leukocyte Esterase LARGE H - Diagnostic Test Radiology reviewed: Reports reviewed - possible early IUP Discharge - Discharge Clinical Impression: Pelvic pain affecting Qualifiers: Trimester: first trimester Qualified Code(s): O26.891 - Other specified pregnan cy related conditions, first trimester; R10.2 - Pelvic and perineal pain Condition: Stable Disposition: HOME, SELF-CARE Instructions: Pelvic Pain in ([facility]) Additional Instructions: rest, return for vaginal bleeding or increased pain Referrals: NAIMA BILL, PAINTER HELPER SIGN [Primary Care Provider] - Follow up as needed
[2019-07-26 09:48] LABS: AMORPHOUS SEDIMENT,URINE TRACE /HPF; APPEARANCE,URINE CLOUDY; BILIRUBIN,URINE NEGATIVE (NEGATIVE); COLOR,URINE YELLOW; GLUCOSE, URINE NEGATIVE (NEGATIVE); KETONES,URINE NEGATIVE (NEGATIVE); LEUKOCYTE ESTERASE,URINE LARGE (NEGATIVE); NITRITE,URINE NEGATIVE (NEGATIVE); PROTEIN,URINE NEGATIVE (NEGATIVE); URINE SPECIFIC GRAVITY 1.021; UROBILINOGEN,URINE NEGATIVE mg/dL (<2.0)
[2019-07-26 09:56] LABS: ABSOLUTE BASOPHILS # (AUTO) 0.1 10^3/uL (0.0-0.2); ABSOLUTE EOSINOPHILS # (AUTO) 0.2 10^3/uL (0.0-0.6); ABSOLUTE LYMPHOCYTES (AUTO) 2.5 10^3/uL (0.5-4.7); ABSOLUTE MONOCYTES (AUTO) 0.6 10^3/uL (0.1-1.4); ABSOLUTE NEUT (AUTO) 5.7 10^3/uL (1.7-8.2); BASOPHILS % (AUTO) 0.9 % (0-2); EOSINOPHILS % (AUTO) 2.5 % (0-6); HEMATOCRIT 39.4 % (36.0-47.0); HEMOGLOBIN 13.4 g/dL (12.0-15.5); LYMPHOCYTES % (AUTO) 27.9 % (13-45); MEAN CORPUSCULAR HEMOGLOBIN 28.1 pg (27.0-33.4); MEAN CORPUSCULAR VOLUME 83 fl (80-97); MONOCYTES % (AUTO) 6.1 % (3-13); PLATELET COUNT 312 10^3/uL (150-450); RED BLOOD COUNT 4.77 10^6/uL (3.72-5.28); RED CELL DISTRIBUTION WIDTH 14.9 % (11.5-14.0); SEGMENTED NEUTROPHILS % (AUTO) 62.6 % (42-78); TOTAL CELLS COUNTED % (AUTO) 100 %; WHITE BLOOD COUNT 9.1 10^3/uL (4.0-10.5)
[2019-07-26 10:25] LABS: ALBUMIN 4.6 g/dL (3.5-5.0); ALKALINE PHOSPHATASE 58 U/L (38-126); ANION GAP 13 (5-19); ASPARTATE AMINO TRANSFERASE 18 U/L (14-36); BILIRUBIN,DIRECT 0.2 mg/dL (0.0-0.4); BILIRUBIN,TOTAL 0.3 mg/dL (0.2-1.3); BLOOD UREA NITROGEN 13 mg/dL (7-20); CALCIUM 9.8 mg/dL (8.4-10.2); CARBON DIOXIDE 21 mmol/L (22-30); CHLORIDE 104 mmol/L (98-107); GLUCOSE 92 mg/dL (75-110); POTASSIUM 4.1 mmol/L (3.6-5.0); TOTAL PROTEIN 7.6 g/dL (6.3-8.2)
--- NOTE | 2019-07-26 10:51 | RADIOLOGY REPORT (SQ) ---
EXAM DESCRIPTION: U/S OB TRANSVAG W/DOPPLER COMPLETED DATE/TIME: 07/26/2019 9:54 am REASON FOR STUDY: L sided pelvic pain COMPARISON: None. TECHNIQUE: Transvaginal static and realtime grayscale images acquired of the pelvis. Additional kimberly cted spectral and color Doppler images recorded. All images stored on PACs. CLINICAL AGE: 6 week 2 day. bHCG: Pending. LIMITATIONS: None. FINDINGS: UTERUS: No masses. No anomalies. GESTATIONAL SAC: Corresponds to a 6 week 1 day gestational. YOLK SAC: No. POLE: None present. RIGHT ADNEXA: Normal ovary with normal vascular flow. No adnexal free fluid. 1.9 cm cyst. LEFT ADNEXA: Ovary not identified due to poor acoustical window. No adnexal free fluid. No adnexal masses. FREE FLUID: None. OTHER: No other significant finding. IMPRESSION: POSSIBLE EARLY INTRAUTERINE . BHCG LEVEL NOT AVAILABLE FOR CORRELATION WITH US FINDINGS. CONSIDER F/U BHCG AND/OR ULTRASOUND FOR VERIFICATION AND TO EXCLUDE ECTOPIC . Trimester of : First trimester - 0 to 13 weeks. TECHNICAL DOCUMENTATION: JOB ID: [id number] [employer]- All Rights Reserved Reading location - IP/workstation name: [email or web address]
[2019-07-26 11:19] VITALS: BP 119/66
== END 2019-07-26 11:21 | disposition home or self-care (01) ==
LOC: ER 09:06
DX: O26.891 Other specified pregnancy related conditions, first trimester (principal); R10.2 Pelvic and perineal pain; Z3A.01 Less than 8 weeks gestation of pregnancy
CPT/HCPCS: 36415; 76817; 80053; 81001; 84702; 85025; 93976; 99284

== ENCOUNTER 2020-02-21 09:48 | Outpatient (CLI) | payer MEDICAID ==
[2020-02-21 10:27] LABS: APPEARANCE,URINE SLIGHTLY-CLOUDY; BILIRUBIN,URINE NEGATIVE (NEGATIVE); COLOR,URINE YELLOW; GLUCOSE, URINE NEGATIVE (NEGATIVE); KETONES,URINE NEGATIVE (NEGATIVE); LEUKOCYTE ESTERASE,URINE LARGE (NEGATIVE); NITRITE,URINE NEGATIVE (NEGATIVE); PROTEIN,URINE NEGATIVE (NEGATIVE); URINE SPECIFIC GRAVITY 1.008; UROBILINOGEN,URINE NEGATIVE mg/dL (<2.0)
--- NOTE | 2020-02-21 10:55 | Non Stress Test Report ---
Non Stress Test Datetime Report Generated by CPN: 02/21/2020 10:55 DEMOGRAPHIC Test Number: 1 EGA NST: 36.2 INDICATION Indication for Study (NST) Other: repeat due to tachycardia in office VITAL SIGNS Temperature - NST: 98.2 Pulse - NST: 148 RESP - NST: 18 NBPSYS NST: 114 NBPDIA NST: 75 MONITORING Monitor Explained: Monitor Explained; Test Explained; Patient Verbalized Understanding Time on Monitor: 02/21/2020 10:05 Time off Monitor: 02/21/2020 10:30 NST Duration: 25 NST INTERVENTIONS NST Interventions: PO Hydration; Reposition Patient Physician Notified NST: A. Suazo, CNM BABY A: [id number] BABY A Movement : Present Contraction Frequency : X1 FHR Baseline : 150 Accelerations : 15X15 Decelerations : None Variability : Moderate 6-25bpm NST Review: Meets Criteria for Reactive NST NST Review and Verified By : SAutry NST Results: Reactive NST REPORT Report Trigger: Send Report
== END 2020-02-21 10:36 | disposition home or self-care (01) ==
LOC: LC 09:48
PROVIDERS: ATTEND Obstetrics & Gynecology
DX: O36.8330 Maternal care for abnormalities of the fetal heart rate or rhythm, third trimester, not applicable or unspecified (principal); Z3A.36 36 weeks gestation of pregnancy
CPT/HCPCS: 59025; 81001; 87086

== ENCOUNTER 2020-03-09 17:32 | Inpatient (IN) | payer MEDICAID ==
[2020-03-09 18:11] LABS: APPEARANCE,URINE CLEAR; BILIRUBIN,URINE NEGATIVE (NEGATIVE); COLOR,URINE YELLOW; GLUCOSE, URINE NEGATIVE (NEGATIVE); KETONES,URINE NEGATIVE (NEGATIVE); LEUKOCYTE ESTERASE,URINE SMALL (NEGATIVE); NITRITE,URINE NEGATIVE (NEGATIVE); PROTEIN,URINE NEGATIVE (NEGATIVE); URINE SPECIFIC GRAVITY 1.003; UROBILINOGEN,URINE NEGATIVE mg/dL (<2.0)
[2020-03-09] MEDS ORDERED: RINGERS SOLUTION,LACTATED 1,000 ML IV ONE (18:23)
[2020-03-09] MEDS ORDERED: RINGERS SOLUTION,LACTATED 1,000 ML IV PRN (18:23)
[2020-03-09 18:34] LABS: URINE BARBITURATES SCREEN NEGATIVE; URINE COCAINE SCREEN NEGATIVE; URINE METHADONE SCREEN NEGATIVE; URINE PHENCYCLIDINE SCREEN NEGATIVE
[2020-03-09 18:35] LABS: URINE AMPHETAMINES SCREEN NEGATIVE
[2020-03-09 18:38] LABS: URINE BENZODIAZEPINES SCREEN NEGATIVE
[2020-03-09 18:39] LABS: URINE MARIJUANA (THC) SCREEN NEGATIVE
[2020-03-09] MEDS ORDERED: OXYTOCIN/NORMAL SALINE 20 UNIT/1,000 ML RTUINJ IV PRN (19:08)
[2020-03-09 19:09] LABS: HEMATOCRIT 34.3 % (36.0-47.0); HEMOGLOBIN 11.7 g/dL (12.0-15.5); MEAN CORPUSCULAR HEMOGLOBIN 28.7 pg (27.0-33.4); MEAN CORPUSCULAR HGB CONC 34.3 g/dL (32.0-36.0); MEAN CORPUSCULAR VOLUME 84 fl (80-97); PLATELET COUNT 179 10^3/uL (150-450); RED BLOOD COUNT 4.08 10^6/uL (3.72-5.28); RED CELL DISTRIBUTION WIDTH 15.8 % (11.5-14.0); WHITE BLOOD COUNT 7.5 10^3/uL (4.0-10.5)
[2020-03-09] MEDS ORDERED: OXYTOCIN/NORMAL SALINE 0 UNIT/0 ML RTUINJ ONE (19:53)
--- NOTE | 2020-03-09 20:27 | Admission Physical ---
Datetime Report Generated by CPN: 03/09/2020 20:27 CURRENT ADMISSION Chief Complaint: Uterine Contractions Indication for Induction: Indicated by Testing Indication for Induction- Other: [place] with minimal variability. Admit Impression : Term, Intrauterine ; Active Labor Admit Impression- Other: Early active labor Admit Plan: Admit to Unit; Initiate Labor Induction Protocol ALLERGIES Medication Allergies: No Medication Allergies: No Known Allergies (12/17/2018) Latex: No Latex Allergies OBSTETRICAL HISTORY EDC: 03/18/2020 00:00 : 4 Para: 3 Term: 3 : 0 SAB: 0 IAB: 0 Ectopic: 0 Livin Cesareans: 0 VBACs: 0 Multiple Births: 0 Gestational Diabetes: No Rh Sensitization: No Incompetent Cervix: No JOSE: No Infertility: No ART Treatment: No Uterine Anomaly: No IUGR: No Hx Previous C/S: No Macrosomia: No Hx Loss/Stillborn: No PIH: No Hx : No Placenta Previa/Abruption: No Depression/PP Depression: Yes PTL/PROM: No Post Hemorrhage: No Current Procedures: Ultrasound; NST Obstetrical History Comments: G1-Boy 39.6 G2-Boy 39.6 G3-05/28/2018-Boy 37weeks G4-Current SEE RECORDS Alcohol: Yes Alcohol Frequency: Occasional Alcohol Comments: Prepregnancy Marijuana : No Cocaine: No Other Illicit Drugs: No Cigarettes: Former Smoker. [id number] Cigarette Comments: Quit 7 years ago MEDICAL HISTORY Diabetes: No Blood Transfusion: No Pulmonary Disease (Asthma, TB): No Breast Disease: No Hypertension: No Weekend Receptionist Surgery: No Heart Disease: No Hosp/Surgery: Yes Autoimmune Disorder: No Anesthetic Complications: No Kidney Disease: No Abnormal Pap Smear: No Neuro/Epilepsy: No Psychiatric Disorders: No Other Medical Diseases: No Hepatitis/Liver Disease: No Significant Family History: No Varicosities/Phlebitis: No Trauma/Violence : No Thyroid Dysfunction: Yes Medical History Comments: Hospitalized for childbirth x 3, Currently on Synthroid for thyroid issues INFECTIOUS HISTORY Gonorrhea: No Genital Herpes: No Chlamydia: No Tuberculosis: No Syphilis: No Hepatitis: No HIV/AIDS Exposure: No Rash or Viral Illness: No HPV: No PHYSICAL EXAM General: Normal HEENT: Normal Neurologic: Normal Thyroid: Deferred Heart: Normal Lungs: Normal Breast: Deferred Back: Normal Abdomen: Normal Genitourinary Exam: Normal Extremities: Normal DTRs: Normal Pelvic Type: Adequate Vital Signs: Reviewed VAGINAL EXAM Dilatation: 3 Effacement: 70 Station: -2 Contraction Comments: irreg MEMBRANES Membranes: Intact FETUS A EGA: 38.5 Monitoring: External US FHR- Baseline: 170 Variability: Moderate 6-25bpm Accelerations: 10X10 Decelerations: None FHR Category: Category II Presentation: Vertex Admit Comment: 29yo at 38+5ega presents for uterine ctx and vaginal spotting. Cvx 3-4cm which is changed from previous. However, testing is tachy and with minimal variability than approp. Recommended IOL due to NRFHRTs. Reviewed if FHR does not improve or responds poorly to IOL then may need section. GBS negative - not febrile, no e/o chorio. h/o Hypothyroid - on 175mcg of synthroid. obesity. Anticipate delivery PLANS FOR LABOR AND DELIVERY Labor and Delivery: None Pain Management: Natural Feeding Preference: Breast Benefit of Breast Feed Discussed: Yes Circumcision: N/A INFORMED CONSENT Informed Consent Obtained: Vaginal Delivery; Induction of Labor; Risks, Benefits and Alternatives Discussed Signature: with User ID: [email or web address]
[2020-03-09] MEDS ORDERED: OXYTOCIN 10 UNIT/ML VIAL ONE (20:41)
[2020-03-09] MEDS ORDERED: OXYTOCIN/NORMAL SALINE 20 UNIT/1,000 ML RTUINJ ONE (20:42)
[2020-03-09] MEDS ORDERED: LIDOCAINE 1% INJ-PF (10 MG/ML) 30 ML SDV ONE (20:42)
[2020-03-09] MEDS ORDERED: MISOPROSTOL 0.2 MG TABLET ONE (20:42)
[2020-03-09] MEDS ORDERED: EPHEDRINE SULFATE INJ 50 MG/1 ML AMPULE ONE (23:17)
[2020-03-09] MEDS ORDERED: FENTANYL/BUPIVACAINE/NS/PF 0 MCG/0 ML RTUINJ EPI ONE (23:18)
[2020-03-09] MEDS ORDERED: BUPIVACAINE HCL 0.25 % INJ/PF (2.5 MG/1 ML) 30 ML VIAL ONE (23:18)
[2020-03-10] MEDS ORDERED: GLYCERIN/WITCH HAZEL LEAF 1 EACH MED..WIPE TP PRN (00:06)
[2020-03-10] MEDS ORDERED: PSEUDOEPHEDRINE HCL 30 MG TABLET PO PRN (00:06)
[2020-03-10] MEDS ORDERED: DIBUCAINE 1% OINTMENT 28 GM TP PRN (00:06)
[2020-03-10] MEDS ORDERED: ACETAMINOPHEN WITH CODEINE #3 TABLET PO PRN ×2 (00:06)
[2020-03-10] MEDS ORDERED: PROMETHAZINE HCL INJ 25 MG/1 ML VIAL IV PRN (00:06)
[2020-03-10] MEDS ORDERED: PROMETHAZINE HCL 25 MG TABLET PO PRN (00:06)
[2020-03-10] MEDS ORDERED: MAGNESIUM HYDROXIDE SUSP 30 ML UDCUP PO PRN (00:06)
[2020-03-10] MEDS ORDERED: NA PHOS,M-B/NA PHOS,DI-BA (ADULT) 133 ML ENEMA PR PRN (00:06)
[2020-03-10] MEDS ORDERED: DIPH/PERTUSS(ACELL)/TETANUS VAC/PF 0.5 ML SYR (>=10YO) IM PRN (00:06)
[2020-03-10] MEDS ORDERED: DIPHENHYDRAMINE HCL 25 MG CAPSULE PO PRN (00:06)
[2020-03-10] MEDS ORDERED: OXYTOCIN/NORMAL SALINE 20 UNIT/1,000 ML RTUINJ IV PRN (00:06)
[2020-03-10] MEDS ORDERED: ZOLPIDEM TARTRATE 5 MG TABLET PO PRN (00:06)
[2020-03-10] MEDS ORDERED: BENZOCAINE/MENTHOL AEROSOL SPRAY 56 ML TOP PRN (00:06)
[2020-03-10] MEDS ORDERED: PROMETHAZINE HCL 25 MG SUPP.RECT PR PRN (00:06)
[2020-03-10] MEDS ORDERED: ACETAMINOPHEN 325 MG TABLET PO PRN (00:06)
[2020-03-10] MEDS ORDERED: MEASLES,MUMPS&RUBELLA VACC/PF 0.5 ML VIAL SUBCUT PRN (00:06)
[2020-03-10] MEDS ORDERED: IBUPROFEN 800 MG TABLET ONE (00:43)
[2020-03-10] MEDS ORDERED: MISOPROSTOL 0.2 MG TABLET PR ONE (01:35)
[2020-03-10] MEDS ORDERED: IBUPROFEN 800 MG TABLET PO SCH (06:00)
[2020-03-10] MEDS: IBUPROFEN 800 MG TABLET PO SCH ×2 (09:20→17:34)
[2020-03-10] MEDS: DOCUSATE SODIUM 100 MG CAPSULE PO SCH ×2 (09:21→17:35)
[2020-03-10] MEDS: SENNOSIDES/DOCUSATE 8.6-50 MG 1 EACH TABLET PO SCH (09:21)
[2020-03-10] MEDS: PRENATAL VITAMIN W DHA CAPSULE PO SCH (09:21)
[2020-03-10] MEDS: FERROUS SULFATE 325 MG TABLET PO SCH ×2 (09:21→17:35)
[2020-03-10] MEDS: FAMOTIDINE 20 MG TABLET PO SCH ×2 (09:21→22:02)
--- NOTE | 2020-03-10 09:22 | PDOC PROGRESS REPORT ---
Subjective-OB Progress Note for:: 03/10/20 - PP day #1, doing well, O+, rubellla Immune, Physical Exam (OB) Vital Signs: Temp Pulse Resp BP Pulse Ox 97.9 F 83 16 122/82 100 03/10/20 07:26 03/10/20 07:26 03/10/20 07:26 03/10/20 07:26 03/10/20 07:26 Intake & Output 03/09/20 03/10/20 03/11/20 06:59 06:59 06:59 Intake Total 222 Balance 222 Weight 89.1 kg - General General Appearance: Appears well, Alert In distress: None - Respiratory Respiratory Status: No respiratory distress - Abdominal Distension: No distension Tenderness: Nontender - Genitourinary Genitourinary Note: voiding - Extremities Upper extremity: Normal inspection Lower extremities: Normal inspection - Neurological Cognition: Normal Orientation: AAOx4 - Psychological Associated symptoms: Normal affect, Normal mood - Skin Skin Temperature: Warm Skin Moisture: Dry Objective-Diagnostic Laboratory: 03/09/20 18:41 03/09/20 03/09/20 03/09/20 17:38 18:41 18:41 WBC 7.5 RBC 4.08 Hgb 11.7 L Hct 34.3 L MCV 84 MCH 28.7 MCHC 34.3 RDW 15.8 H Plt Count 179 Urine Color YELLOW Urine Appearance CLEAR Urine pH 8.0 Ur Specific [place] 1.003 Urine Protein NEGATIVE Urine Glucose (UA) NEGATIVE Urine Ketones NEGATIVE Urine Blood LARGE H Urine Nitrite NEGATIVE Ur Leukocyte Esterase SMALL H Blood Type O POSITIVE Antibody Screen NEGATIVE Assessment and Plan(PN) Plan:: Ambulation encouraged, routine PP orders - Time Spent with Patient Time with patient: Less than 15 minutes Medications reviewed and adjusted accordingly: Yes - Disposition Anticipated Discharge: Home Within: within 24 hours
[2020-03-10] MEDS ORDERED: LEVOTHYROXINE SODIUM 0.05 MG TABLET PO SCH ×2 (09:26→22:00)
[2020-03-10 10:32] LABS: HEMATOCRIT 32.9 % (36.0-47.0); HEMOGLOBIN 11.3 g/dL (12.0-15.5); MEAN CORPUSCULAR HEMOGLOBIN 28.8 pg (27.0-33.4); MEAN CORPUSCULAR HGB CONC 34.3 g/dL (32.0-36.0); MEAN CORPUSCULAR VOLUME 84 fl (80-97); PLATELET COUNT 188 10^3/uL (150-450); RED BLOOD COUNT 3.92 10^6/uL (3.72-5.28); RED CELL DISTRIBUTION WIDTH 16.1 % (11.5-14.0); WHITE BLOOD COUNT 10.5 10^3/uL (4.0-10.5)
[2020-03-10] MEDS: LEVOTHYROXINE SODIUM 0.1 MG TABLET PO SCH (11:00)
[2020-03-10] MEDS: LEVOTHYROXINE SODIUM 0.075 MG TABLET PO SCH (11:01)
[2020-03-11] MEDS: IBUPROFEN 800 MG TABLET PO SCH ×2 (01:20→10:22)
[2020-03-11] MEDS: LEVOTHYROXINE SODIUM 0.1 MG TABLET PO SCH (05:08)
[2020-03-11] MEDS: LEVOTHYROXINE SODIUM 0.075 MG TABLET PO SCH (05:09)
[2020-03-11 08:05] VITALS: BP 110/79
[2020-03-11] MEDS: PRENATAL VITAMIN W DHA CAPSULE PO SCH (10:22)
[2020-03-11] MEDS: FERROUS SULFATE 325 MG TABLET PO SCH (10:22)
[2020-03-11] MEDS: FAMOTIDINE 20 MG TABLET PO SCH (10:22)
[2020-03-11] MEDS: DOCUSATE SODIUM 100 MG CAPSULE PO SCH (10:23)
[2020-03-11] MEDS: SENNOSIDES/DOCUSATE 8.6-50 MG 1 EACH TABLET PO SCH (10:23)
--- NOTE | 2020-03-11 12:41 | PDOC DISCHARGE SUMMARY ---
Impression - Admit/DC Date/PCP Admission Date/Primary Care Provider: 03/09/20 18:45 ROBERT CENTENO MD Discharge Date: 03/11/20 - Discharge Diagnosis (1) Encounter for induction of labor Is this a current diagnosis for this admission?: Yes (2) tachycardia affecting management of mother Is this a current diagnosis for this admission?: Yes (3) Obstetrical laceration, first degree Is this a current diagnosis for this admission?: Yes (4) Vaginal delivery Is this a current diagnosis for this admission?: Yes - Assessment Summary: 29yo G4 now P4 s/p ppd2, stable and ready for discharge, understands warning s/s and when to rtc or seek immediate care - Additional Information Resuscitation Status: Full Code Discharge Diet: As Tolerated, Regular Discharge Activity: Activity As Tolerated, Balance Activity w/Rest, Pelvic Rest, No tub bath, Walk Frequently Referrals: ROBERT CENTENO MD [Primary Care Provider] - Prescriptions: Ibuprofen [Motrin 800 mg Tablet] 800 mg PO Q8HP PRN #20 tablet PRN Reason: Abdominal Cramping Home Medications: 57/Iron/Folic/Dss/Dha [Extra-Virt Plus Dha Softgel] 1 each PO DAILY 01/02/15 Levothyroxine Sodium [Synthroid] 175 mcg PO QHS 05/04/18 Ibuprofen [Motrin 800 mg Tablet] 800 mg PO Q8HP PRN #20 tablet 03/11/20 Results Laboratory Results: WBC 10.5 10^3/uL (4.0-10.5) 03/10/20 10:22 RBC 3.92 10^6/uL (3.72-5.28) 03/10/20 10:22 Hgb 11.3 g/dL (12.0-15.5) L 03/10/20 10:22 Hct 32.9 % (36.0-47.0) L 03/10/20 10:22 MCV 84 fl (80-97) 03/10/20 10:22 MCH 28.8 pg (27.0-33.4) 03/10/20 10:22 MCHC 34.3 g/dL (32.0-36.0) 03/10/20 10:22 RDW 16.1 % (11.5-14.0) H 03/10/20 10:22 Plt Count 188 10^3/uL (150-450) 03/10/20 10:22 Urine Color YELLOW 03/09/20 17:38 Urine Appearance CLEAR 03/09/20 17:38 Urine pH 8.0 (5.0-9.0) 03/09/20 17:38 Ur Specific [place] 1.003 03/09/20 17:38 Urine Protein NEGATIVE mg/dL (NEGATIVE) 03/09/20 17:38 Urine Glucose (UA) NEGATIVE mg/dL (NEGATIVE) 03/09/20 17:38 Urine Ketones NEGATIVE mg/dL (NEGATIVE) 03/09/20 17:38 Urine Blood LARGE (NEGATIVE) H 03/09/20 17:38 Urine Nitrite NEGATIVE (NEGATIVE) 03/09/20 17:38 Urine Bilirubin NEGATIVE (NEGATIVE) 03/09/20 17:38 Urine Urobilinogen NEGATIVE mg/dL (<2.0) 03/09/20 17:38 Ur Leukocyte Esterase SMALL (NEGATIVE) H 03/09/20 17:38 Urine Ascorbic Acid NEGATIVE (NEGATIVE) 03/09/20 17:38 Urine Opiates Screen NEGATIVE 03/09/20 17:38 Urine Methadone Screen NEGATIVE 03/09/20 17:38 Ur Barbiturates Screen NEGATIVE 03/09/20 17:38 Ur Phencyclidine Scrn NEGATIVE 03/09/20 17:38 Ur Amphetamines Screen NEGATIVE 03/09/20 17:38 U Benzodiazepines Scrn NEGATIVE 03/09/20 17:38 Urine Cocaine Screen NEGATIVE 03/09/20 17:38 U Marijuana (THC) Screen NEGATIVE 03/09/20 17:38 RPR NONREACTIVE (NONREACTIVE) 03/09/20 18:41 Blood Type O POSITIVE 03/09/20 18:41 Antibody Screen NEGATIVE 03/09/20 18:41
--- NOTE | 2020-03-12 16:51 | Delivery Summary ---
Del Sum A-C Datetime Report Generated by CPN: 03/12/2020 16:51 DELIVERY PERSONNEL DELIVERY PERSONNEL: [id number] Delivery Doctor:: Dinah Callejas MD Labor and Delivery Nurse:: Sudha Gusman RNC Labor and Delivery Nurse:: Aundrea Bradley RN Food Science Professor/CLAMSHELL OPERATOR: Meron Villa, ST MATERNAL INFORMATION Delivery Anesthesia: None Medications After Delivery: Pitocin Bolus-Please Comment Estimated Blood Loss (ml): 50 Delivery QBL: 150 Maternal Complications: Other Complication Details: Non-reassuring heart tones Provider Comments: VFI delivered in TIRSO presentation with loose nuchal cord. Shoulders and body delivered without difficulty. Cord doubly clamped and cut. Infant to maternal abd for NRP. Placenta delivered intact spontaneously. FF at U after draining bladder. Cytotec 1000mcg per rectum for uterine tone. 1st degree perineal laceration repaired. Good hemostasis. Mother and baby stable upon provider leaving the room. LABOR SUMMARY EDC: 03/18/2020 00:00 No. Babies in Womb: 1 Attempted: No Labor Anesthesia: None LABOR INFORMATION Reason for Induction: Other Reason for Induction- Other: nonreassuring heart tones Onset of Labor: 03/09/2020 23:07 Complete Dilatation: 03/09/2020 23:40 Oxytocin: Induction Group B Beta Strep: Negative Antibiotics # of Doses: 0 Antibiotics Time of Last Dose: 0 Name of Antibiotic Given: 0 Steroids Given: None Reason Steroids Not Administered: Not Applicable MEMBRANES Membranes Rupture Method: Artificial Rupture of Membranes: 03/09/2020 22:09 Length of Rupture (hr): 1.62 Amniotic Fluid Color: Clear Amniotic Fluid Amount: Small Amniotic Fluid Odor: Normal STAGES OF LABOR Stage 1 hr: 0 Stage 1 min: 33 Stage 2 hr: 0 Stage 2 min: 6 Stage 3 hr: 0 Stage 3 min: 4 Total Time in Labor hr: 0 Total Time in Labor min: 43 VAGINAL DELIVERY Episiotomy: None Laceration #1: Perineal Laceration Extension #1: First Degree Laceration Repair: Yes Laceration Repair Note: 1st degree perineal laceration repaired in usual fashion Sponge Count Correct: Yes Sharps Count Correct: Yes BABY A INFORMATION Infant Delivery Date/Time: 03/09/2020 23:46 Method of Delivery: Vaginal Nurse Controlled Delivery: No Born in Route : No : N/A Forceps: N/A Vacuum Extraction: N/A Shoulder Dystocia : No PRESENTATION/POSITION BABY A Presentation: Cephalic Cephalic Presentation: Vertex Vertex Position: Left Occipital Anterior Breech Presentation: N/A PLACENTA INFORMATION BABY A Placenta Delivery Time : 03/09/2020 23:50 Placenta Method of Delivery: Spontaneous Placenta Status: Delivered SCORES BABY A Heart Rate 1 min: >100 bpm Resp Effort 1 min: Good Cry Reflex Irritability 1 min: Cough or Sneeze or Pulls Away Muscle Tone 1 min: Active Motion Color 1 min: Body [place], Extremities Blue SCORE 1 MIN: 9 Heart Rate 5 min: >100 bpm Resp Effort 5 min: Good Cry Reflex Irritability 5 min: Cough or Sneeze or Pulls Away Muscle Tone 5 min: Active Motion Color 5 min: Body [place], Extremities Blue SCORE 5 MIN: 9 INFORMATION BABY A Gestational Age at Delivery: 38.5 Gestational Status: Early Term- 37- 38.6 Weeks Outcome : Liveborn Condition : Stable Sex: Female IDENTIFICATION BABY A Verification Date/Time: 03/10/2020 00:02 ID Band Number: [id number] Mother's Name Verified: Yes RN Verifying Infant: Justo Bradley RN/D [employer] RN WEIGHT/LENGTH BABY A Infant Birthweight (gm): 3998 Infant Weight (lb): 8 Infant Weight (oz): 13 Length (in): 20.50 Infant Length (cm): 52.07 CORD INFORMATION BABY A No. Cord Vessels: 3 Nuchal Cord : Around Neck x1, Loose Cord Blood Taken: Yes-For Eval (Mom's Blood Type - or O+) Suction: None ASSESSMENT BABY A Infant Complications: None; Decreased Variability Physical Findings at Delivery: Within Normal Limits Infant Respirations: Appears Normal Skin to Skin: Yes Fingerprint Clerk/ALS Called : No Care By: LAVERN Gusman Transferred To: Remains with Mother SIGNATURES Signature: with User ID: [email or web address]
== END 2020-03-11 14:41 | disposition home or self-care (01) | DRG 807 ==
LOC: LC 17:32 → LR 18:45 → 2S 03-10 01:42
PROVIDERS: ADMIT Student in an Organized Health Care Education/Training Program; ATTEND Student in an Organized Health Care Education/Training Program
PROC: 10E0XZZ Delivery of Products of Conception, External Approach (ICD-10-PCS; principal; 2020-03-09)
PROC: 0HQ9XZZ Repair Perineum Skin, External Approach (ICD-10-PCS; 2020-03-09)
PROC: 10907ZC Drainage of Amniotic Fluid, Therapeutic from Products of Conception, Via Natural or Artificial Opening (ICD-10-PCS; 2020-03-09)
PROC: 3E0234Z Introduction of Serum, Toxoid and Vaccine into Muscle, Percutaneous Approach (ICD-10-PCS; 2020-03-11)
DX: O99.284 Endocrine, nutritional and metabolic diseases complicating childbirth (principal); Z37.0 Single live birth; O69.81X0 Labor and delivery complicated by cord around neck, without compression, not applicable or unspecified; E03.9 Hypothyroidism, unspecified; O76 Abnormality in fetal heart rate and rhythm complicating labor and delivery; O70.0 First degree perineal laceration during delivery; O99.214 Obesity complicating childbirth; E66.9 Obesity, unspecified; Z23 Encounter for immunization; Z87.891 Personal history of nicotine dependence; Z3A.38 38 weeks gestation of pregnancy
CPT/HCPCS: 36415; 80307; 81005; 85027; 86592; 86850; 86900; 86901; 90715; 94760; J2590; J3010; J3490

== ENCOUNTER 2020-05-17 18:45 | Emergency (ER) | payer MEDICAID ==
--- NOTE | 2020-05-17 22:51 | ER Document Report ---
ED Skin Rash/Insect Bite/Abscs - General Chief Complaint: Rash Stated Complaint: RASH/FEVER/MUSCLE PAIN Time Seen by Provider: 05/17/20 22:42 Primary Care Provider: ROBERT CENTENO MD [Primary Care Provider] - Follow up as needed Notes: This is a 29-year-old female who is here in the department today mostly because she has a rash to her back that her noticed today. She is breast- feeding has a 4-month-old child also has a history of hypothyroid for which she is taking Synthroid. She normally has resting heart rate of about 110 as I was a bit concerned about her elevated heart rate of 119 upon evaluation. On recheck it was 110. TRAVEL OUTSIDE OF THE [place] IN LAST 30 DAYS: No - HPI Patient complains to provider of: Skin rash/lesion Onset: This afternoon Onset/Duration: No: Sudden Quality of pain: No pain Skin Character: Rash Skin Temperature: Warm Quality of rash: No: Itchy, Painful, Burning Medication exposure: denies: Antibiotic Food exposure: denies: Shellfish Other exposure: denies: Detergent, Makeup, Poison oak Exacerbated by: Denies - Related Data Allergies/Adverse Reactions: No Known Allergies Allergy (Verified 12/17/18 11:11) Home Medications: Synthroid. Prenatals Past Medical History - Social History Smoking Status: Never Smoker Frequency of alcohol use: None Drug Abuse: None Family History: None - Denies Endocrine Medical History: Reports: Hx Hypothyroidism Renal/ Medical History: Denies: Hx Ovarian Cysts, Hx Peritoneal Dialysis Psychiatric Medical History: Reports: Hx Anxiety - Immunizations Hx Diphtheria, Pertussis, Tetanus Vaccination: Yes Review of Systems - Review of Systems Constitutional: No symptoms reported EENT: No symptoms reported Cardiovascular: No symptoms reported Respiratory: No symptoms reported Gastrointestinal: No symptoms reported Genitourinary: No symptoms reported Female Genitourinary: No symptoms reported Musculoskeletal: No symptoms reported Skin: Rash Hematologic/Lymphatic: No symptoms reported Neurological/Psychological: No symptoms reported Physical Exam - Vital signs Vitals: Temp Pulse Resp BP Pulse Ox 98.7 F 119 H 20 113/83 100 05/17/20 21:50 05/17/20 21:50 05/17/20 21:50 05/17/20 21:50 05/17/20 21:50 Interpretation: Normal - General General appearance: Appears well, Alert - HEENT Head: Normocephalic, Atraumatic Eyes: Normal Pupils: PERRL - Respiratory Respiratory status: No respiratory distress Chest status: Nontender Breath sounds: Normal Chest palpation: Normal - Cardiovascular Rhythm: Regular Heart sounds: Normal auscultation Murmur: No - Abdominal Inspection: Normal Distension: No distension Bowel sounds: Normal Tenderness: Nontender Organomegaly: No organomegaly - Back Back: Normal, Nontender - Extremities General upper extremity: Normal inspection, Nontender, Normal color, Normal ROM, Normal temperature General lower extremity: Normal inspection, Nontender, Normal color, Normal ROM, Normal temperature, Normal weight bearing. No: Hupmhrey's sign - Neurological Neuro grossly intact: Yes Cognition: Normal Orientation: AAOx4 Elisa Coma Scale Eye Opening: Spontaneous [place] Coma Scale Verbal: Oriented [place] Coma Scale Motor: Obeys Commands Elisa Coma Scale Total: 15 Speech: Normal Motor strength normal: LUE, RUE, LLE, RLE Sensory: Normal - Psychological Associated symptoms: Normal affect, Normal mood - Skin Skin Temperature: Warm Skin Moisture: Dry Skin Color: Normal Character of irregularity: Fine, Urticarial Irregularity with: negative: Swelling, Tenderness Course - Re-evaluation Re-evalutation: 05/17/20 22:58 Patient had discussed whether not she had used any new detergents or any new dryer sheets or anything like that she said no that she was actually particularly careful about things like that she did not buy any new clothes wear that without washing them she is breast-feeding her 4-month-old she is in Synthroid she does need to have her level rechecked as they upped it through her . She does have a very fine rash to her back consistent with that of a contact dermatitis she has no shortness of breath no exertional chest pain no exertional shortness of breath no difficulty swallowing breathing managing saliva or anything of that variety. It looks like a contact dermatitis. - Vital Signs Vital signs: Temp Pulse Resp BP Pulse Ox 98.6 F 110 H 18 120/80 100 05/17/20 22:52 05/17/20 22:52 05/17/20 22:52 05/17/20 22:52 05/17/20 22:52 Discharge - Discharge Clinical Impression: Contact dermatitis Qualifiers: Contact dermatitis type: unspecified Condition: Good Disposition: HOME, SELF-CARE Instructions: Contact Dermatitis ([facility]) Additional Instructions: May use Benadryl [id number] in a limited fashion. Follow-up with private doctor in 1 to 2 days for final radiology readings please return to the emergency room for any change worsening condition. Follow up with private M.D. for all other routine health care needs. Referrals: ROBERT CENTENO MD [Primary Care Provider] - Follow up as needed
[2020-05-17 22:53] VITALS: BP 120/80
== END 2020-05-17 23:06 | disposition home or self-care (01) ==
LOC: ER 18:45
DX: L25.9 Unspecified contact dermatitis, unspecified cause (principal); R50.9 Fever, unspecified; M79.10 Myalgia, unspecified site; E03.9 Hypothyroidism, unspecified
CPT/HCPCS: 99282